=== PATIENT | male | born 1990 | race Hispanic/Latino ===

== ENCOUNTER 2018-09-05 09:45 | Day surgery (SDC) | payer MEDICAID ==
[2018-09-04 14:40] VITALS: BMI 19.0
--- NOTE | 2018-09-05 11:13 | CP.SDSHP ---
Same Day Surgery H & P - History Proposed Procedure: EGD, colonoscopy Pre-Op Diagnosis: rectal bleeding, abdominal pain - Allergies Allergies: Allergies Penicillins Allergy (Verified 05/22/18 17:42) RASH - Physical Exam General Appearance: NAD Vital Signs: Vital Signs 09/05/18 10:19 Temperature 98.7 F Pulse Rate 80 Respiratory 16 Rate Blood Pressure 116/67 O2 Sat by Pulse 99 Oximetry Mental Status: Alert & Oriented x3 Neuro: WNL Heart: WNL Lungs: WNL GI: WNL - {Optional Preform as Required} Abdomen: WNL - Impression Pt. Evaluated Today:Candidate for Anesthesia & Procedure: Yes - Date & Time Date: 09/05/18 Time: 11:12 Short Stay Discharge - Short Stay Discharge Admitting Diagnosis/Reason for Visit: UNSPECIFIED ABDOMINAL PAIN//HEMORRHAGE OF ANUS Disposition: HOME/ ROUTINE Referrals: Mirza Kelly DO [Primary Care Provider] -
[2018-09-05] MEDS ORDERED: Midazolam 2 MG/2 ML VIAL ONE ×2 (11:19→11:29)
[2018-09-05] MEDS ORDERED: Propofol 10 mg/ml Inj (20 ML) ONE ×2 (11:19)
[2018-09-05 13:29] VITALS: O2SAT 99
[2018-09-05 13:35] VITALS: BP 103/63; PULSE 92; RESP 12; TEMP 98.6
== END 2018-09-05 13:25 | disposition home or self-care (01) ==
LOC: C.ENDO 09:45
PROVIDERS: ATTEND Internal Medicine Gastroenterology
DX: K64.1 Second degree hemorrhoids (principal); R10.9 Unspecified abdominal pain; K29.50 Unspecified chronic gastritis without bleeding; K44.9 Diaphragmatic hernia without obstruction or gangrene
CPT/HCPCS: 43239; 45380; 88305; J2250; J2704